=== PATIENT | male | born 1975 | race Two or more races ===

== ENCOUNTER 2017-04-20 07:58 | Emergency (ER) | payer MEDICAID ==
[~2017-04-20] VITALS: Ht 170.2 cm; Wt 92.1 kg
[2017-04-20 08:14] VITALS: Ht 170.2 cm; Wt 92.1 kg
[2017-04-20 08:56] VITALS: BP 150/92
== END 2017-04-20 08:56 | disposition home or self-care (01) ==
LOC: ED 07:58
DX: J01.90 Acute sinusitis, unspecified (principal); I10 Essential (primary) hypertension

== ENCOUNTER 2017-08-06 20:29 | Emergency (ER) | payer MEDICAID ==
[~2017-08-06] VITALS: Ht 167.6 cm; Wt 93.4 kg
[2017-08-06 20:44] VITALS: BP 137/96; Ht 167.6 cm; Wt 93.4 kg
== END 2017-08-06 21:43 | disposition home or self-care (01) ==
LOC: ED 20:29
DX: J30.9 Allergic rhinitis, unspecified (principal)
CPT/HCPCS: Q0092

== ENCOUNTER 2018-05-28 10:10 | Emergency (ER) | payer OTHER ==
[~2018-05-28] VITALS: Ht 170.2 cm; Wt 90.3 kg
[2018-05-28 10:27] VITALS: BP 141/82; Ht 170.2 cm; Wt 90.3 kg
== END 2018-05-28 11:09 | disposition home or self-care (01) ==
LOC: ED 10:10
DX: J06.9 Acute upper respiratory infection, unspecified (principal); G43.909 Migraine, unspecified, not intractable, without status migrainosus; F32.9 Major depressive disorder, single episode, unspecified